=== PATIENT | female | born 1975 | race African-American/Black ===

== ENCOUNTER 2023-07-27 18:15 | Emergency (ER) | payer MEDICAID, OTHER ==
[~2023-07-27] VITALS: Ht 154.9 cm; Wt 78.0 kg
[2023-07-27 18:20] VITALS: O2SAT 99
[2023-07-27] MEDS: HYDROCODONE/ACETAMINOPHEN 5/325MG TABLET PO ONE (22:02)
[2023-07-27] MEDS ORDERED: CYCL5TAB MT (22:42)
[2023-07-27] MEDS ORDERED: IBUP-2030 MT (22:42)
[2023-07-27 22:53] VITALS: BP 135/83; PULSE 87; RESP 20; TEMP 98.5
== END 2023-07-27 22:54 | disposition home or self-care (01) ==
LOC: ER 18:15
DX: S16.1XXA Strain of muscle, fascia and tendon at neck level, initial encounter (principal); S80.01XA Contusion of right knee, initial encounter; V49.59XA Passenger injured in collision with other motor vehicles in traffic accident, initial encounter; Y93.89 Activity, other specified; Y92.89 Other specified places as the place of occurrence of the external cause; Y99.8 Other external cause status
CPT/HCPCS: 81025; 73562; 70450; 72125; 99284; Z7610